=== PATIENT | male | born 1935 | race Caucasian/White ===

== ENCOUNTER 2017-01-05 16:22 | Inpatient (IN) | payer MEDICARE, OTHER ==
--- NOTE | ~2017-01-05 | EGD ---
EGD REPORT [facility] [address] [address] NAME: BLESSING RODRIGUEZ : 31 STATUS : ADM IN PAT#: [id number] AGE: 81 ADM/REG DATE : 01/05/17 MR#: [id number] REPORT SERV DATE: 01/07/17 DICTATED BY: ANTHONY ADAMS DATE: 01/07/17 REPORT STATUS : Draft TRANSCRIBED BY: [employer] DATE: 01/07/17 [facility]oscopy Center Patient Name: Blessing Rodriguez Date of : 1935 Attending MD: ANTHONY ADAMS MD Procedure Date No Time: 01/07/2017 Procedure: ERCP Indications: Tumor of the lower third of the main bile duct Referring MD: LIDIA BRYSON Medicines: Sedation Required Anesthesia Staff Assistance Complications: No immediate complications. Estimated blood loss: Minimal. Procedure: Pre-Anesthesia Assessment: - ASA Grade Assessment: IV - A patient with severe systemic disease that is a constant threat to life. After obtaining informed consent, the scope was passed under direct vision. Throughout the procedure, the patient's blood pressure, pulse, and oxygen saturations were monitored continuously. The TJF Q180V [id number] was introduced through the mouth, and advanced to the duodenum and used to locate the major papilla. The ERCP was accomplished without difficulty. The patient tolerated the procedure well. Findings: The major papilla was normal. The ventral pancreatic duct was deeply cannulated with the short-nosed traction sphincterotome. Contrast was injected. I personally interpreted the pancreatic duct images. There was brisk flow of contrast through the ducts. Image quality was excellent. Contrast extended to the pancreatic duct. The entire pancreatic duct was normal. A straight Roadrunner wire was passed into the biliary tree. A 3 mm biliary sphincterotomy was made with a braided stonetome over a wire using ERBE electrocautery. There was no post-sphincterotomy bleeding. The middle third of the main bile duct contained a single localized stenosis. The left and right hepatic ducts and all intrahepatic branches were diffusely dilated, with an obstruction. Cells for cytology were obtained by brushing. One 7 Fr by 7 cm plastic stent with a single external flap and a single internal flap was placed into the common bile duct. Bile flowed through the stent. The stent was in good position. Impression: - The major papilla appeared normal. - The pancreatogram was normal. - A localized biliary stricture was found. The stricture was malignant appearing. This stricture was treated with biliary sphincterotomy. EGD REPORT [address] [place]. [address] NAME: BLESSING RODRIGUEZ : [birth year] STATUS : ADM IN [facility]#: [id number] AGE: 81 ADM/REG DATE : 01/05/17 MR#: [id number] REPORT SERV DATE: 01/07/17 DICTATED BY: ANTHONY ADAMS DATE: 01/07/17 REPORT STATUS : Draft TRANSCRIBED BY: [employer] DATE: 01/07/17 - The left and right hepatic ducts and all intrahepatic branches were dilated, with an obstruction. Recommendation: - [facility]. - Clear liquid diet today. - Await cytology results. - Continue present medications. Procedure Code(s): --- Professional --- 89072, Esophagogastroduodenoscopy, flexible, transoral; diagnostic, including collection of specimen(s) by brushing or washing, when performed (separate procedure) Diagnosis Code(s): --- Professional --- K83.1, Obstruction of bile duct D49.0, Neoplasm of unspecified behavior of digestive system CPT copyright 2013 [employer]. All rights reserved. The codes documented in this report are preliminary and upon tinware lithograph press operator review may be revised to meet current compliance requirements. ANTHONY ADAMS MD 01/07/2017 9:03 AM This report has been signed electronically. Number of Addenda: 0 Note Initiated On: 01/07/2017 6:48 AM Scope Withdrawal Time 0 hours 0 minutes 0 seconds [id number] [place] [id number]
--- NOTE | ~2017-01-05 | DS ---
Discharge Summary [facility] [address] [facility] [place]. [address] NAME: BLESSING RODRIGUEZ : 31 STATUS : ADM IN [facility]#: [id number] AGE: 81 ADM/REG DATE : 01/05/17 MR#: [id number] REPORT SERV DATE: 01/12/17 DICTATED BY: DANILO HEAD DATE: 01/12/17 REPORT STATUS : Draft TRANSCRIBED BY: MODL DATE: 01/12/17 ADMISSION DATE: 01/05/2017 DISCHARGE DATE: 01/12/2017 CHIEF COMPLAINT ON ADMISSION: Turning yellow. DISCHARGE DIAGNOSES: 1. Obstructive jaundice. 2. Small bowel adenocarcinoma. 3. 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 4. Anemia chronic. 5. Severe malnutrition. 6. Previous history of lung cancer in 2009 and 2010. HISTORY OF PRESENT ILLNESS: Please see full H and P by Kerline Brush for details regarding initial presentation. HOSPITAL COURSE: 1. Obstructive jaundice due to malignant tumor of the lower third of the main bile duct. The patient was seen by GI, initially had a plastic stent placed which was replaced yesterday January 11 with a metal stent. Metal stent will last longer and the patient so will not have to come back in. The patient will follow up given his either recurrence of small bowel adenocarcinoma or an additional primary biliary cancer. He will follow up with Dr. [place] and consider either medical treatment versus hospice. At this point, no surgical option will be available to him given his severe malnutrition. Dr. Montana will see the patient early next week. 2. Small bowel adenocarcinoma. Again the patient will follow up with Dr. [place]. 3. Severe malnutrition. The patient should be encouraged to drink his Ensure. He was eating well prior to discharge. 4. Anemia, hemoglobin is 8.4 at discharge. 5. CKD with metabolic acidosis, chronic. The patient will be discharged on his previous home medications. 6. Leukocytosis, this has been stable, it is 14 at discharge. There is no evidence of an active ongoing infection. No fever. Again he can follow up as an outpatient. PERTINENT LABORATORY DATA: Prior to discharge, white blood cell count 14, hemoglobin 8.4, and platelet count of 346. BMP, serum sodium 137, potassium 4.4, chloride 105, CO2 of 22, creatinine 1.16, BUN 42, albumin 1.5, total bilirubin down to 5.5, alkaline phosphatase 445. CA19-9 was 995. Bilirubin was 19.1 on admission. DISPOSITION: Home with home health and PT. DISCHARGE MEDICATIONS: Same as admission. FOLLOWUP: Will be with Dr. Montana. Discharge Summary [address] [place]. [address] NAME: BLESSING RODRIGUEZ : 31 STATUS : ADM IN PAT#: [id number] AGE: 81 ADM/REG DATE : 01/05/17 MR#: [id number] REPORT SERV DATE: 01/12/17 DICTATED BY: DANILO HEAD DATE: 01/12/17 REPORT STATUS : Draft TRANSCRIBED BY: JAMILA DATE: 01/12/17 TIME SPENT ON DISCHARGE: Greater than 30 minutes. DNK/MODL Danilo Head MD / [id number] CC: MD Jonathon Patel M.D.
--- NOTE | ~2017-01-05 | CN ---
Consultation Report [place] [id number] [facility] [place]. [address] NAME: BLESSING RODRIGUEZ : [birth year] STATUS : ADM IN PAT#: [id number] AGE: 81 ADM/REG DATE : 01/05/17 MR#: [id number] REPORT SERV DATE: 01/06/17 DICTATED BY: SOREN NAIK DATE: 01/06/17 REPORT STATUS : Draft TRANSCRIBED BY: MODL DATE: 01/06/17 INPATIENT CONSULT NOTE DATE OF CONSULTATION: 01/06/2017 REASON FOR CONSULTATION: Obstructive jaundice. HISTORY OF PRESENT ILLNESS: Mr. Rodriguez is a very pleasant 81-year-old male with a past medical history most significant for prior lung cancer and recurrent small bowel cancer with prior small bowel obstructions who presented to the emergency department with complaints of painless jaundice. The patient states that recently he has noticed yellowing of his skin and sclerae and he has documented no problems with his appetite. No nausea or vomiting. No abdominal pain. No change in his bowel habits. The patient has noticed darkening of his urine. The patient underwent outpatient CT scanning of his abdomen which showed marked dilation of his intrahepatic biliary tree and his common hepatic duct up to the level of the duodenal ampulla where there appeared to be a 1.7 cm lesion either at the level of the papilla or just above it that was causing obstruction. Question if this is lymphadenopathy per Oncology notes. GI was consulted for ERCP and further management. REVIEW OF SYSTEMS: All systems reviewed and were negative aside from what was mentioned in the history of present illness. PAST MEDICAL HISTORY: Includes 1. Hypertension. 2. History of C. difficile colitis. 3. History of recurrent small bowel obstruction. 4. Chronic kidney disease, stage III. 5. Glaucoma. 6. Small bowel adenocarcinoma diagnosed in 2016. 7. History of lung cancer. 8. Remote history of skin cancer. 9. History of nephrolithiasis. 10.History of colon polyps. 11.History of GERD. PAST SURGICAL HISTORY: 1. Status post cholecystectomy. 2. Status post small bowel adenocarcinoma resection. FAMILY HISTORY: The patient has no family history of GI-related malignancies that he is aware of. Consultation Report [place] [id number] [facility] [place]. [address] NAME: BLESSING RODRIGUEZ : 33 STATUS : ADM IN PAT#: [id number] AGE: 81 ADM/REG DATE : 01/05/17 MR#: [id number] REPORT SERV DATE: 01/06/17 DICTATED BY: SOREN NAIK DATE: 01/06/17 REPORT STATUS : Draft TRANSCRIBED BY: MODJaylyn DATE: 01/06/17 SOCIAL HISTORY: The patient does not use alcohol or illicit substances and quit smoking approximately 50 years ago. ALLERGIES: THE PATIENT HAS NO KNOWN DRUG ALLERGIES. OUTPATIENT MEDICATIONS INCLUDE: 1. Cholestyramine. 2. Colace. 3. Lasix. 4. Levsin. 5. Megace. 6. Multivitamin. 7. Prilosec. 8. Potassium. 9. Sodium bicarbonate. 10.Flomax. 11.Hytrin. PHYSICAL EXAMINATION: VITAL SIGNS: Most recent vital signs include a temperature of 98.1, pulse of 80, blood pressure is 130/74, and saturating 95% on room air. GENERAL INSPECTION: Reveals an elderly male, lying in bed, in no apparent distress. HEENT: Head is normocephalic, atraumatic with normal inspection of the oral mucosa with moist mucous membranes. Sclerae positive for icterus. Pupils are equal and round. NECK: Supple without lymphadenopathy. HEART: Rate is regular with normal S1, S2. LUNGS: Sounds clear to auscultation bilaterally without wheezes, rales, or rhonchi. ABDOMEN: Soft, nontender, and nondistended with normoactive bowel sounds. EXTREMITIES: The patient has no cyanosis, clubbing, or edema. SKIN: The patient is unquestionably jaundiced but no other rashes were noted. NEUROLOGIC: The patient has no gross motor deficits. He is alert and oriented. Mood and affect are appropriate. Judgment appears to be intact. LABORATORY DATA: Most recent laboratory results include a CBC that demonstrated white count of 11.1, hemoglobin of 7.9, and a platelet count of 394,000. INR was elevated at 3.1. Comprehensive metabolic panel was relatively unremarkable aside from elevated BUN and creatinine of 31 and 1.8. Albumin is markedly low at 1.5, total bilirubin 15.9, alkaline phosphatase 1136, ALT of 116, and AST of 133. DIAGNOSTIC STUDIES: CT of the abdomen and pelvis was reviewed personally by myself which showed marked dilation of the intrahepatic biliary tree and common bile duct down to the level of the ampulla with obstruction by approximately a 1.7 cm mass. No abnormalities or obstruction of the pancreas. Consultation Report [facility] [address] [place]. [address] NAME: BLESSING RODRIGUEZ : 33 STATUS : ADM IN PAT#: [id number] AGE: 81 ADM/REG DATE : 01/05/17 MR#: [id number] REPORT SERV DATE: 01/06/17 DICTATED BY: SOREN NAIK DATE: 01/06/17 REPORT STATUS : Draft TRANSCRIBED BY: MODL DATE: 01/06/17 ASSESSMENT AND PLAN: Mr. Rodriguez is a very pleasant 81-year-old male with past medical history significant for small bowel adenocarcinoma as well as several other cancers who presents with painless jaundice and was found to have an obstructing mass at the level of the ampulla. We would perform ERCP for further evaluation and stent placement. If no mass is seen during that examination, we would pursue EUS with FNA for cytology. The patient has a markedly lowered albumin level, and his INR is considerably elevated concerning he is not on any type of anticoagulation suggesting either liver dysfunction or severe malnutrition. We would recommend continued diet as tolerated and also consideration of supplemental nutrition, possibly obtaining a Nutrition consult to see what would be most appropriate from their perspective. PLAN: 1. We will require that the patient's INR come down to below 1.5 prior to any endoscopy. We would achieve this with a combination of subcutaneous vitamin K as the patient has a history of celiac disease and biliary obstruction thereby likely limiting his absorption of fat-soluble vitamins including vitamin K. We would also assist this with FFP administration. 2. We would make the patient n.p.o. after midnight in anticipation of possible ERCP tomorrow. Thank you very much for this interesting consult. We will continue to follow along with you. Please call with any questions or concerns you might have. C/GIRMAL Soren Naik MD / [id number] CC: Justin Bailey M.D.
--- NOTE | ~2017-01-05 | HP ---
History And Physical [place] [address] [place]. [address] NAME: BLESSING RODRIGUEZ : 33 STATUS : ADM IN PAT#: [id number] AGE: 81 ADM/REG DATE : 01/05/17 MR#: [id number] REPORT SERV DATE: 01/06/17 DICTATED BY: DATE: REPORT STATUS : Draft TRANSCRIBED BY: MODL DATE: 01/05/17 DATE OF ADMISSION: 01/05/2017 CHIEF COMPLAINT: The patient is admitted from Dr. Montana's office with chief complaint of "yellowing ". HISTORY OF PRESENT ILLNESS: Mr. Rodriguez is a very pleasant 81-year-old white male, followed by [facility] for history of small bowel adenocarcinoma, which was resected in 04/2016. He did not undergo any chemotherapy afterward. He has been doing relatively well with the exception of a few hospitalizations for recurrent partial small-bowel obstructions through the fall of 2015. Dr. Montana reports that recently, the patient's total bilirubin has been becoming more elevated, as high as 3 last week with some up-trend in his liver enzymes as well, prompting a CT of the abdomen and pelvis to be performed on 12/29/2016 demonstrating marked dilation of the biliary tree with a soft tissue mass suspect at the duodenal papilla obstructing the common bile duct, but not the pancreatic duct. The patient was seen in Dr. Montana's office today with progressive jaundice and is referred to the Hospitalist Service for consideration of a palliative common bile duct stent and for further management of jaundice and weakness. The patient himself reports feeling well. He denies any abdominal pain, nausea, vomiting, or recent weight loss. He states that his appetite has been good, and his functional status has been good as well. 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 "I have been doing really well except for the yellowing." REVIEW OF SYSTEMS: Full 14-point review of systems is negative except as dictated in the history of present illness. PAST MEDICAL HISTORY: Includes: 1. Hypertension. 2. History of C. diff colitis. 3. History of recurrent small-bowel obstructions. 4. Chronic kidney disease, stage III. 5. Glaucoma. 6. Small-bowel adenocarcinoma, diagnosed in 2015. 7. History of lung cancer treated in 2009 and 2010. 8. Remote history of skin cancer. 9. History of nephrolithiasis. 10.History of colon polyps. 11.Gastroesophageal reflux disease. PAST SURGICAL HISTORY: Includes cholecystectomy, sinus surgery, small bowel tumor resection in April 2016. History And Physical [address] [address] NAME: BLESSING RODRIGUEZ : 33 STATUS : ADM IN PAT#: [id number] AGE: 81 ADM/REG DATE : 01/05/17 MR#: [id number] REPORT SERV DATE: 01/06/17 DICTATED BY: DATE: REPORT STATUS : Draft TRANSCRIBED BY: MODL DATE: 01/05/17 ALLERGIES: NO KNOWN DRUG ALLERGIES. MEDICATIONS: Home medication list includes: 1. Cholestyramine 4 g p.o. q.6 hours. 2. Colace 100 mg p.o. at bedtime. 3. Lasix 20 mg p.o. daily. 4. Levsin 0.125 mg p.o. every six hours as needed for abdominal pain. 5. Megace 10 mL p.o. twice a day. 6. Multivitamin one tablet p.o. daily. 7. Prilosec 40 mg p.o. daily. 8. Potassium 20 mEq p.o. daily. 9. Sodium bicarbonate 1300 mg p.o. twice a day. 10.Flomax 0.4 mg p.o. daily. 11.Hytrin 2 mg p.o. at bedtime. SOCIAL HISTORY: The patient is active, resides independently and a self-sufficient of all activities of daily living. He quit smoking 45 years ago. Does not use any alcohol or illicit substances. FAMILY HISTORY: Significant for COPD and emphysema as well as lung cancer. The patient has no family history of GI related malignancies. PHYSICAL EXAMINATION: VITAL SIGNS: Temperature 97.7, pulse 110, respirations 18, oxygen saturations 98% on room air, and blood pressure is 139/84. GENERAL: This is a well-developed, well-nourished white male, looking younger than his stated age, and in no apparent distress. Alert and oriented in three dimensions. Pleasant. HEENT: Normocephalic, atraumatic. Pupils are equally round and reactive to light. Positive scleral icterus. No conjunctival pallor. No sinus tenderness to palpation or nasal drainage. Oropharynx reveals moist mucosa with no posterior pharyngeal erythema or exudate. NECK: Supple with no jugular venous distention. No lymphadenopathy. No bruits. CARDIOVASCULAR: Regular rate and rhythm with occasional ectopy. No murmurs, rubs or gallops. LUNGS: Clear to auscultation bilaterally. No wheezes, crackles, or rhonchi. ABDOMEN: Soft, nontender, and nondistended with normoactive bowel sounds in four quadrants. No hepatosplenomegaly. EXTREMITIES: No cyanosis, clubbing, or edema. SKIN: Visibly jaundiced with normal skin turgor. No rash or skin breakdown. NEUROLOGIC: Cranial nerves 2 through 12 were tested and are intact. No asterixis. Strength 5/5 in bilateral upper and lower extremities. Deep tendon reflexes 2+ bilateral brachioradialis and patellar tendons. LABORATORY DATA: White blood cell count 12.3, hemoglobin 9.2, hematocrit 30.1, platelets 398. Comprehensive metabolic panel and INR are pending. IMAGING: CT abdomen and pelvis report as above. History And Physical [address] [address] NAME: BLESSING RODRIGUEZ : 33 STATUS : ADM IN [facility]#: [id number] AGE: 81 ADM/REG DATE : 01/05/17 MR#: [id number] REPORT SERV DATE: 01/06/17 DICTATED BY: DATE: REPORT STATUS : Draft TRANSCRIBED BY: JAMILA DATE: 01/05/17 IMPRESSION: 1. Obstructive jaundice due to soft tissue mass suspected at the duodenal papilla, obstructing the common bile duct, but not the pancreatic duct. 2. Recurrent adenocarcinoma of the small bowel. 3. History of partial small bowel obstructions. 4. History of Clostridium difficile. 5. Hypertension. 6. Benign prostatic hypertrophy. 7. Chronic kidney disease, stage III. 8. Glaucoma. PLAN: 1. The patient is being admitted to the Hospitalist Service, attending Dr. Barney Mercado. 2. Remainder of admission labs are pending, and records have been requested from Oncology for comparison. 3. N.p.o. after midnight for GI evaluation for palliative common bile duct stent or other management of obstructive jaundice. Dr. Thomas will be consulted and is aware of the pending consultation request. 4. Home medication list will be reviewed and reconciled as appropriate. JOSE/JAMILA Barney Mercado M.D. / [id number] CC: Justin Bailey M.D.
--- NOTE | ~2017-01-05 | EGD ---
EGD REPORT [facility] [address] [address] NAME: BLESSING RODRIUGEZ : 33 STATUS : ADM IN PAT#: [id number] AGE: 81 ADM/REG DATE : 01/05/17 MR#: [id number] REPORT SERV DATE: 01/11/17 DICTATED BY: SOREN NAIK DATE: 01/11/17 REPORT STATUS : Draft TRANSCRIBED BY: [facility] DATE: 01/11/17 Endoscopy Center Patient Name: Blessing Rodriguez Date of : 1935 Attending MD: SOREN NAIK MD Procedure Date No Time: 01/11/2017 Procedure: ERCP Indications: Malignant tumor of the lower third of the main bile duct; need for metal stent placement Referring MD: LIDIA BRYSON Medicines: General Anesthesia Complications: No immediate complications. Estimated blood loss: None Procedure: Pre-Anesthesia Assessment: - ASA Grade Assessment: III - A patient with severe systemic disease. After obtaining informed consent, the scope was passed under direct vision. Throughout the procedure, the patient's blood pressure, pulse, and oxygen saturations were monitored continuously. The TJF Q180V [id number] was introduced through the mouth, and advanced to the duodenum and used to inject contrast into the bile duct. The ERCP was accomplished without difficulty. The patient tolerated the procedure well. Findings: A masking machine feeder film of the abdomen was obtained. One stent ending in the lower third of the main bile duct was seen. The esophagus was successfully intubated under direct vision without detailed examination of the pharynx, larynx, and associated structures, and upper GI tract. One stent originating in the biliary tree was emerging from the major papilla. The stent was visibly patent. 0.035 inch x 260 cm straight Hydra Jagwire was passed into the biliary tree. The biliary tree contained one plastic stent. The stent was removed using a snare. A 10 mm by 6 cm bare metal stent with no external flaps and no internal flaps was placed into the biliary tree. Bile flowed through the stent. The stent was in good position. The endoscope was withdrawn from the patient. Impression: - Successful exchange of a plastic biliary stent for an uncovered 10 x 60 mm SEMS Recommendation: - [facility]. - Return to GI clinic PRN. Procedure Code(s): --- Professional --- 58556, Endoscopic retrograde cholangiopancreatography EGD REPORT [address] [address] NAME: BLESSING RODRIGUEZ : 31 STATUS : ADM IN [facility]#: [id number] AGE: 81 ADM/REG DATE : 01/05/17 MR#: [id number] REPORT SERV DATE: 01/11/17 DICTATED BY: SOREN NAIK DATE: 01/11/17 REPORT STATUS : Draft TRANSCRIBED BY: [employer] DATE: 01/11/17 (ERCP); with removal and exchange of stent(s), biliary or pancreatic duct, including pre- and post-dilation and guide wire passage, when performed, including sphincterotomy, when performed, each stent exchanged Diagnosis Code(s): --- Professional --- Z96.89, Presence of other specified functional implants Z46.59, Encounter for fitting and adjustment of other gastrointestinal appliance and device C24.0, Malignant neoplasm of extrahepatic bile duct CPT copyright 2013 [employer]. All rights reserved. The codes documented in this report are preliminary and upon computer language coder review may be revised to meet current compliance requirements. Soren Naik MD SOREN NAIK MD 01/11/2017 10:55 AM This report has been signed electronically. Number of Addenda: 0 Note Initiated On: 01/11/2017 8:10 AM Scope Withdrawal Time 0 hours 0 minutes 0 seconds [address] [place] [address]
[~2017-01-05 16:22] MED LIST: ACET500CAP PO; ALUMINUM HYDROXIDE PO; AMLODIPINE BESYLATE PO; ASAB PO; AUGMENTIN; BLOOD PRESSURE MED; CENTRUM PO; CENTRUM TAB1 TAB PO; COUGH MED PO; DEX4 PO; EYE DROPS; FERROUS SULF325 M1 PO; FLAG500TAB PO; FLORASTOR250 MG PO; FLUCON1 PO; HYT2 PO; HYT5 PO; HYZAAR 100/25 T1 TAB PO; IMOD PO; IRON; IRON325 MG PO; KDUR20 PO; KLOR-CON M2020 MEQ PO; L20 PO; L40 PO; LEVAQUIN750 MG PO; LOM PO; LORTAB 5 PO; M-END WC OR; MAALOX PO; MEGACE PO; MEGACEUDL PO; MULTIPLE VIT PO; MULTIVIT/MIN PO; NORCO1 TA1 PO; NORV5 PO; POTASSIUM PO; PR25 PO; PRILOSEC40 MG PO; PROBIOTIC PO; QUESTRAN4 GM; QUESTRAN4 GM PO; SODBICAR10 PO; SUPER B COMP PO; T PO; TERAZOSIN PO; ULTRAM50 PO; VANC125UDL PO; VICODINTAB PO; VITAMIN PO; XALAT OP; XALAT OPH; ZOFRAN4 PO; [UNRECOGNIZED DRUG - CODE] PO; [UNRECOGNIZED DRUG - MIXTURE] PO; [UNRECOGNIZED DRUG - OTHER] PO; [UNRECOGNIZED DRUG - OTHER] PO/LIQ; [UNRECOGNIZED DRUG - REMARK] PO
[2017-01-05] MEDS ORDERED: MULTIVITAMI1 PO (17:36)
[2017-01-05] MEDS ORDERED: DSS PO (17:36)
[2017-01-05] MEDS ORDERED: FLOMAX4 PO (17:36)
[2017-01-05] MEDS ORDERED: L20 PO (17:36)
[2017-01-05] MEDS ORDERED: PRILOSEC40 MG PO (17:37)
[2017-01-05] MEDS ORDERED: MEGACEUDL PO (17:37)
[2017-01-05] MEDS ORDERED: SODBICAR10 PO (17:37)
[2017-01-05] MEDS ORDERED: LEVSINTAB PO (17:38)
[2017-01-05] MEDS ORDERED: KLOR-CON M2020 MEQ PO (17:38)
[2017-01-05] MEDS ORDERED: HYT2 PO (17:38)
[2017-01-05] MEDS ORDERED: PREVALITE4 G1 PO (17:38)
[2017-01-05 17:39] LABS: HEMATOCRIT 30.1 % (40.0-51.0); HEMOGLOBIN 9.2 g/dL (13.6-17.8); MANUAL DIFF YES %; MEAN CORPUS HGB CONC 30.6 g/dL (32.0-36.0); MEAN CORPUSCULAR HEMOGLOB 29.8 pg (26.0-34.0); MEAN CORPUSCULAR VOLUME 97.4 fL (80-100); PLATELET COUNT 398 10/3/uL (150-400); RBC DISTRIBUTION WIDTH 19.3 % (12.0-16.0); RED CELL COUNT 3.09 10/6/uL (4.7-6.1); WHITE BLOOD CELLS 12.3 10/3/uL (4.5-10.5)
[2017-01-05 17:49] LABS: INTERNATIONAL NORMAL RATI 3.3 UNITS (-)
[2017-01-05 17:51] LABS: PROTIME (NOT ORD) 33.1 SEC (12.0-14.5)
[2017-01-05 18:05] LABS: BUN (BLOOD UREA NITROGEN) 35 MG/DL (6-23); CALCIUM, SERUM 7.9 MG/DL (8.5-10.4); CHLORIDE, SERUM 109 MMOL/L (96-112); CO2 (CARBON DIOXIDE) 19 MMOL/L (24-34); CREATININE 1.94 MG/DL (0.70-1.30); GFR AFRICAN AMERICAN 36 ML/MIN (>=60); GFR NON AFRICAN AMERICAN 31 ML/MIN (>=60); SGPT(ALT) 138 U/L (5-65); SODIUM, SERUM 138 MMOL/L (135-148)
[2017-01-05 18:06] LABS: A/G RATIO 0.6 (0.7-1.9); ALBUMIN 1.9 G/DL (3.5-5.0); ALKALINE PHOSPHATASE 1411 U/L (45-117); GLOBULIN 3.1 G/DL (2.5-4.1); GLUCOSE, SERUM 83 MG/DL (60-99); POTASSIUM, SERUM 4.1 MMOL/L (3.5-5.3); TOTAL BILIRUBIN 19.1 MG/DL (0-1.2)
[2017-01-05 18:07] LABS: SGOT(AST) 172 U/L (5-40)
[2017-01-05 18:23] LABS: ANISOCYTOSIS 1+ (5-10/OIF) (0-5/OIF); BAND NEUTROPHILS 2 %; EOSINOPHILS 1 %; EOSINOPHILS ABSOLUTE (CALC) 0.12 10/3/uL (0.0-0.53); IMMATURE GRANS ABSOLUTE (CALC) 0.98 10/3/uL (0.0-0.11); LYMPHOCYTES 5 %; LYMPHOCYTES ABSOLUTE (CALC) 0.62 10/3/uL (0.67-4.30); METAMYELOCYTES 7 %; MONOCYTES 6 %; MONOCYTES ABSOLUTE (CALC) 0.74 10/3/uL (0.21-1.20); MYELOCYTES 1 %; NEUTROPHILS ABSOLUTE (CALC) 9.84 10/3/uL (2.02-8.40); SEGMENTED NEUTROPHIL (0) 78 %; TARGET CELLS FEW (3-10/OIF) (0-1/OIF); TOTAL NUCLEATED CELLS 100
[2017-01-05 18:24] LABS: HYPOCHROMIA 1+ (3-10/OIF) (0-2/OIF); PLATELET ESTIMATE ADQ (ADEQUATE)
[2017-01-05 18:25] LABS: POLYCHROMASIA 1+ (2-5/OIF) (0-1/OIF)
[2017-01-06 04:13] LABS: HEMATOCRIT 26.5 % (40.0-51.0); HEMOGLOBIN 7.9 g/dL (13.6-17.8); MANUAL DIFF YES %; MEAN CORPUS HGB CONC 29.8 g/dL (32.0-36.0); MEAN CORPUSCULAR HEMOGLOB 28.5 pg (26.0-34.0); MEAN CORPUSCULAR VOLUME 95.7 fL (80-100); MEAN PLATELET VOLUME 10.3 fL (9.2-13.0); PLATELET COUNT 394 10/3/uL (150-400); RBC DISTRIBUTION WIDTH 18.9 % (12.0-16.0); RED CELL COUNT 2.77 10/6/uL (4.7-6.1); WHITE BLOOD CELLS 11.1 10/3/uL (4.5-10.5)
[2017-01-06 04:14] LABS: INTERNATIONAL NORMAL RATI 3.1 UNITS (-); PROTIME (NOT ORD) 31.8 SEC (12.0-14.5)
[2017-01-06 04:38] LABS: CALCIUM, SERUM 7.6 MG/DL (8.5-10.4); CHLORIDE, SERUM 110 MMOL/L (96-112); CO2 (CARBON DIOXIDE) 19 MMOL/L (24-34); GFR AFRICAN AMERICAN 39 ML/MIN (>=60); GFR NON AFRICAN AMERICAN 34 ML/MIN (>=60); GLUCOSE, SERUM 99 MG/DL (60-99); POTASSIUM, SERUM 4.2 MMOL/L (3.5-5.3); SGOT(AST) 133 U/L (5-40); SGPT(ALT) 116 U/L (5-65); SODIUM, SERUM 139 MMOL/L (135-148); TOTAL PROTEIN 4.3 G/DL (6.0-8.5)
[2017-01-06 04:44] LABS: A/G RATIO 0.5 (0.7-1.9); ALBUMIN 1.5 G/DL (3.5-5.0); ALKALINE PHOSPHATASE 1136 U/L (45-117); BUN (BLOOD UREA NITROGEN) 31 MG/DL (6-23); GLOBULIN 2.8 G/DL (2.5-4.1); TOTAL BILIRUBIN 15.9 MG/DL (0-1.2)
[2017-01-06 05:06] LABS: BAND NEUTROPHILS 1 %; IMMATURE GRANS ABSOLUTE (CALC) 0.44 10/3/uL (0.0-0.11); LYMPHOCYTES 6 %; LYMPHOCYTES ABSOLUTE (CALC) 0.67 10/3/uL (0.67-4.30); METAMYELOCYTES 3 %; MONOCYTES 4 %; MONOCYTES ABSOLUTE (CALC) 0.44 10/3/uL (0.21-1.20); MYELOCYTES 1 %; NEUTROPHILS ABSOLUTE (CALC) 9.55 10/3/uL (2.02-8.40); SEGMENTED NEUTROPHIL (0) 85 %; TARGET CELLS FEW (3-10/OIF) (0-1/OIF); TOTAL NUCLEATED CELLS 100
[2017-01-06 05:07] LABS: ANISOCYTOSIS 1+ (5-10/OIF) (0-5/OIF); HYPOCHROMIA 1+ (3-10/OIF) (0-2/OIF); POLYCHROMASIA 1+ (2-5/OIF) (0-1/OIF)
[2017-01-06 11:14] LABS: PROCALCITONIN 0.91 ng/mL (<0.5)
[2017-01-06 12:31] LABS: ASCORBIC ACID (UR NOT ORDER) NEG (NEG); BILIRUBIN, URINE NEGATIVE (NEG); KETONE, URINE NEGATIVE (NEG); LEUKOCYTE ESTERASE(NOT OR NEG (NEG); WBC (NOT ORDERED) (RFLEX) 1 (0-5)
[2017-01-07 05:20] LABS: INTERNATIONAL NORMAL RATI 1.3 UNITS (-); PARTIAL THROMBO TIME 32.6 SEC (22.5-37.2); PROTIME (NOT ORD) 16.5 SEC (12.0-14.5)
[2017-01-07 05:33] LABS: HEMATOCRIT 28.3 % (40.0-51.0); HEMOGLOBIN 8.3 g/dL (13.6-17.8); MEAN CORPUS HGB CONC 29.3 g/dL (32.0-36.0); MEAN CORPUSCULAR HEMOGLOB 28.1 pg (26.0-34.0); MEAN CORPUSCULAR VOLUME 95.9 fL (80-100); MEAN PLATELET VOLUME 10.3 fL (9.2-13.0); PLATELET COUNT 412 10/3/uL (150-400); RBC DISTRIBUTION WIDTH 19.3 % (12.0-16.0); RED CELL COUNT 2.95 10/6/uL (4.7-6.1); WHITE BLOOD CELLS 12.7 10/3/uL (4.5-10.5)
[2017-01-07 05:34] LABS: MANUAL DIFF YES %
[2017-01-07 05:43] LABS: A/G RATIO 0.6 (0.7-1.9); ALBUMIN 1.6 G/DL (3.5-5.0); BUN (BLOOD UREA NITROGEN) 28 MG/DL (6-23); CALCIUM, SERUM 7.8 MG/DL (8.5-10.4); CHLORIDE, SERUM 109 MMOL/L (96-112); CO2 (CARBON DIOXIDE) 17 MMOL/L (24-34); CREATININE 1.59 MG/DL (0.70-1.30); GFR AFRICAN AMERICAN 46 ML/MIN (>=60); GFR NON AFRICAN AMERICAN 40 ML/MIN (>=60); GLOBULIN 2.9 G/DL (2.5-4.1); GLUCOSE, SERUM 80 MG/DL (60-99); POTASSIUM, SERUM 4.1 MMOL/L (3.5-5.3); SGOT(AST) 124 U/L (5-40); SGPT(ALT) 99 U/L (5-65); SODIUM, SERUM 138 MMOL/L (135-148); TOTAL PROTEIN 4.5 G/DL (6.0-8.5)
[2017-01-07 05:46] LABS: ALKALINE PHOSPHATASE 1122 U/L (45-117); TOTAL BILIRUBIN 18.4 MG/DL (0-1.2)
[2017-01-07 06:40] LABS: BAND NEUTROPHILS 4 %; IMMATURE GRANS ABSOLUTE (CALC) 0.76 10/3/uL (0.0-0.11); LYMPHOCYTES 11 %; METAMYELOCYTES 6 %; MONOCYTES 6 %; MONOCYTES ABSOLUTE (CALC) 0.76 10/3/uL (0.21-1.20); NEUTROPHILS ABSOLUTE (CALC) 9.78 10/3/uL (2.02-8.40); PLATELET ESTIMATE SLT INC (ADEQUATE); SEGMENTED NEUTROPHIL (0) 73 %; TOTAL NUCLEATED CELLS 100
[2017-01-07 06:41] LABS: ANISOCYTOSIS 1+ (5-10/OIF) (0-5/OIF); TARGET CELLS FEW (3-10/OIF) (0-1/OIF)
[2017-01-07 13:26] LABS: FREE T4 1.43 NG/DL (0.76-1.46); PREALBUMIN 6.5 MG/DL (17.0-43.0)
[2017-01-08 06:28] LABS: HEMATOCRIT 26.7 % (40.0-51.0); HEMOGLOBIN 8.1 g/dL (13.6-17.8); MEAN CORPUS HGB CONC 30.3 g/dL (32.0-36.0); MEAN CORPUSCULAR HEMOGLOB 29.8 pg (26.0-34.0); MEAN CORPUSCULAR VOLUME 98.2 fL (80-100); MEAN PLATELET VOLUME 10.5 fL (9.2-13.0); PLATELET COUNT 400 10/3/uL (150-400); RED CELL COUNT 2.72 10/6/uL (4.7-6.1); WHITE BLOOD CELLS 13.4 10/3/uL (4.5-10.5)
[2017-01-08 06:32] LABS: MANUAL DIFF YES %
[2017-01-08 07:02] LABS: ANISOCYTOSIS 1+ (5-10/OIF) (0-5/OIF); BAND NEUTROPHILS 4 %; IMMATURE GRANS ABSOLUTE (CALC) 0.27 10/3/uL (0.0-0.11); LYMPHOCYTES 9 %; LYMPHOCYTES ABSOLUTE (CALC) 1.21 10/3/uL (0.67-4.30); METAMYELOCYTES 2 %; MONOCYTES 3 %; NEUTROPHILS ABSOLUTE (CALC) 11.52 10/3/uL (2.02-8.40); PLATELET ESTIMATE ADQ (ADEQUATE); SEGMENTED NEUTROPHIL (0) 82 %; TOTAL NUCLEATED CELLS 100
[2017-01-08 07:03] LABS: HYPOCHROMIA 1+ (3-10/OIF) (0-2/OIF); TARGET CELLS FEW (3-10/OIF) (0-1/OIF)
[2017-01-08 07:26] LABS: ALBUMIN 1.4 G/DL (3.5-5.0); TOTAL PROTEIN 4.2 G/DL (6.0-8.5)
[2017-01-08 07:27] LABS: DIRECT BILIRUBIN 9.9 MG/DL (0.0-0.4); INDIRECT BILIRUBIN(NOT ORDER) 2.7 MG/DL (0.1-0.9); TOTAL BILIRUBIN 12.6 MG/DL (0-1.2)
[2017-01-08 11:39] LABS: PROCALCITONIN 0.69 ng/mL (<0.5)
[2017-01-09 05:37] LABS: INTERNATIONAL NORMAL RATI 1.3 UNITS (-); PROTIME (NOT ORD) 16.1 SEC (12.0-14.5)
[2017-01-09 05:39] LABS: HEMATOCRIT 24.2 % (40.0-51.0); HEMOGLOBIN 7.6 g/dL (13.6-17.8); MEAN CORPUS HGB CONC 31.4 g/dL (32.0-36.0); MEAN CORPUSCULAR HEMOGLOB 30.5 pg (26.0-34.0); MEAN CORPUSCULAR VOLUME 97.2 fL (80-100); MEAN PLATELET VOLUME 10.1 fL (9.2-13.0); PLATELET COUNT 355 10/3/uL (150-400); RBC DISTRIBUTION WIDTH 19.1 % (12.0-16.0); RED CELL COUNT 2.49 10/6/uL (4.7-6.1); WHITE BLOOD CELLS 14.2 10/3/uL (4.5-10.5)
[2017-01-09 05:46] LABS: MANUAL DIFF YES %
[2017-01-09 05:53] LABS: A/G RATIO 0.5 (0.7-1.9); ALBUMIN 1.4 G/DL (3.5-5.0); BUN (BLOOD UREA NITROGEN) 29 MG/DL (6-23); CALCIUM, SERUM 7.8 MG/DL (8.5-10.4); CHLORIDE, SERUM 106 MMOL/L (96-112); CO2 (CARBON DIOXIDE) 19 MMOL/L (24-34); CREATININE 1.46 MG/DL (0.70-1.30); GFR AFRICAN AMERICAN 51 ML/MIN (>=60); GFR NON AFRICAN AMERICAN 44 ML/MIN (>=60); GLOBULIN 2.9 G/DL (2.5-4.1); POTASSIUM, SERUM 4.4 MMOL/L (3.5-5.3); SGOT(AST) 40 U/L (5-40); SGPT(ALT) 56 U/L (5-65); SODIUM, SERUM 135 MMOL/L (135-148); TOTAL PROTEIN 4.3 G/DL (6.0-8.5)
[2017-01-09 05:59] LABS: ALKALINE PHOSPHATASE 703 U/L (45-117); DIRECT BILIRUBIN 7.3 MG/DL (0.0-0.4); GLUCOSE, SERUM 99 MG/DL (60-99); INDIRECT BILIRUBIN(NOT ORDER) 1.6 MG/DL (0.1-0.9); TOTAL BILIRUBIN 8.9 MG/DL (0-1.2)
[2017-01-09 07:27] LABS: ANISOCYTOSIS 1+ (5-10/OIF) (0-5/OIF); BAND NEUTROPHILS 6 %; IMMATURE GRANS ABSOLUTE (CALC) 0.57 10/3/uL (0.0-0.11); LYMPHOCYTES 6 %; LYMPHOCYTES ABSOLUTE (CALC) 0.85 10/3/uL (0.67-4.30); METAMYELOCYTES 4 %; MONOCYTES 9 %; MONOCYTES ABSOLUTE (CALC) 1.28 10/3/uL (0.21-1.20); PLATELET ESTIMATE ADQ (ADEQUATE); SEGMENTED NEUTROPHIL (0) 75 %; TOTAL NUCLEATED CELLS 100
[2017-01-09 07:28] LABS: STOMATOCYTES 1+ (3-10/OIF) (0-2/OIF); TARGET CELLS FEW (3-10/OIF) (0-1/OIF)
[2017-01-10 07:32] LABS: HEMATOCRIT 24.9 % (40.0-51.0); HEMOGLOBIN 7.4 g/dL (13.6-17.8); MEAN CORPUSCULAR HEMOGLOB 28.8 pg (26.0-34.0); MEAN CORPUSCULAR VOLUME 96.9 fL (80-100); MEAN PLATELET VOLUME 10.4 fL (9.2-13.0); PLATELET COUNT 363 10/3/uL (150-400); RED CELL COUNT 2.57 10/6/uL (4.7-6.1); WHITE BLOOD CELLS 16.9 10/3/uL (4.5-10.5)
[2017-01-10 07:33] LABS: MANUAL DIFF YES %; MEAN CORPUS HGB CONC 29.7 g/dL (32.0-36.0)
[2017-01-10 07:39] LABS: A/G RATIO 0.4 (0.7-1.9); ALBUMIN 1.3 G/DL (3.5-5.0); ALKALINE PHOSPHATASE 551 U/L (45-117); BUN (BLOOD UREA NITROGEN) 34 MG/DL (6-23); CALCIUM, SERUM 7.5 MG/DL (8.5-10.4); CHLORIDE, SERUM 108 MMOL/L (96-112); CO2 (CARBON DIOXIDE) 19 MMOL/L (24-34); CREATININE 1.15 MG/DL (0.70-1.30); DIRECT BILIRUBIN 5.6 MG/DL (0.0-0.4); GFR AFRICAN AMERICAN 68 ML/MIN (>=60); GFR NON AFRICAN AMERICAN 59 ML/MIN (>=60); GLOBULIN 3.1 G/DL (2.5-4.1); GLUCOSE, SERUM 87 MG/DL (60-99); INDIRECT BILIRUBIN(NOT ORDER) 1.6 MG/DL (0.1-0.9); POTASSIUM, SERUM 4.6 MMOL/L (3.5-5.3); SGOT(AST) 42 U/L (5-40); SGPT(ALT) 51 U/L (5-65); SODIUM, SERUM 136 MMOL/L (135-148); TOTAL BILIRUBIN 7.2 MG/DL (0-1.2); TOTAL PROTEIN 4.4 G/DL (6.0-8.5)
[2017-01-10 07:51] LABS: INTERNATIONAL NORMAL RATI 1.2 UNITS (-); PROTIME (NOT ORD) 15.4 SEC (12.0-14.5)
[2017-01-10 08:32] LABS: BAND NEUTROPHILS 5 %; IMMATURE GRANS ABSOLUTE (CALC) 1.69 10/3/uL (0.0-0.11); LYMPHOCYTES 17 %; LYMPHOCYTES ABSOLUTE (CALC) 2.87 10/3/uL (0.67-4.30); METAMYELOCYTES 8 %; MONOCYTES 5 %; MONOCYTES ABSOLUTE (CALC) 0.85 10/3/uL (0.21-1.20); MYELOCYTES 2 %; NEUTROPHILS ABSOLUTE (CALC) 11.49 10/3/uL (2.02-8.40); PLATELET ESTIMATE ADQ (ADEQUATE); SEGMENTED NEUTROPHIL (0) 63 %; TOTAL NUCLEATED CELLS 100
[2017-01-10 08:33] LABS: ANISOCYTOSIS 1+ (5-10/OIF) (0-5/OIF); POIKILOCYTOSIS 1+ (5-10/OIF) (0-5/OIF); POLYCHROMASIA 1+ (2-5/OIF) (0-1/OIF); TOXIC GRANULATION 1+
[2017-01-10 08:42] LABS: PROCALCITONIN 0.52 ng/mL (<0.5)
[2017-01-10 12:28] LABS: CA-19-9 995.1 U/ML (< 37.0)
[2017-01-11 06:18] LABS: MEAN CORPUSCULAR HEMOGLOB 30.7 pg (26.0-34.0); MEAN CORPUSCULAR VOLUME 96.9 fL (80-100); MEAN PLATELET VOLUME 10.9 fL (9.2-13.0); PLATELET COUNT 299 10/3/uL (150-400); RBC DISTRIBUTION WIDTH 20.2 % (12.0-16.0); RED CELL COUNT 2.93 10/6/uL (4.7-6.1); WHITE BLOOD CELLS 15.7 10/3/uL (4.5-10.5)
[2017-01-11 06:19] LABS: HEMATOCRIT 28.4 % (40.0-51.0); MANUAL DIFF YES %; MEAN CORPUS HGB CONC 31.7 g/dL (32.0-36.0)
[2017-01-11 06:27] LABS: A/G RATIO 0.4 (0.7-1.9); ALBUMIN 1.3 G/DL (3.5-5.0); CALCIUM, SERUM 7.7 MG/DL (8.5-10.4); CHLORIDE, SERUM 106 MMOL/L (96-112); CO2 (CARBON DIOXIDE) 20 MMOL/L (24-34); CREATININE 1.12 MG/DL (0.70-1.30); GFR AFRICAN AMERICAN 70 ML/MIN (>=60); GFR NON AFRICAN AMERICAN 60 ML/MIN (>=60); GLOBULIN 3.4 G/DL (2.5-4.1); GLUCOSE, SERUM 88 MG/DL (60-99); SGPT(ALT) 44 U/L (5-65); SODIUM, SERUM 136 MMOL/L (135-148); TOTAL PROTEIN 4.7 G/DL (6.0-8.5)
[2017-01-11 06:31] LABS: ALKALINE PHOSPHATASE 485 U/L (45-117); BUN (BLOOD UREA NITROGEN) 38 MG/DL (6-23); SGOT(AST) 50 U/L (5-40); TOTAL BILIRUBIN 5.9 MG/DL (0-1.2)
[2017-01-11 06:37] LABS: ANISOCYTOSIS 1+ (5-10/OIF) (0-5/OIF); BAND NEUTROPHILS 12 %; EOSINOPHILS 1 %; EOSINOPHILS ABSOLUTE (CALC) 0.16 10/3/uL (0.0-0.53); LYMPHOCYTES 9 %; LYMPHOCYTES ABSOLUTE (CALC) 1.41 10/3/uL (0.67-4.30); METAMYELOCYTES 5 %; MONOCYTES 2 %; MONOCYTES ABSOLUTE (CALC) 0.31 10/3/uL (0.21-1.20); MYELOCYTES 2 %; NEUTROPHILS ABSOLUTE (CALC) 12.72 10/3/uL (2.02-8.40); PLATELET ESTIMATE ADQ (ADEQUATE); SEGMENTED NEUTROPHIL (0) 69 %; TOTAL NUCLEATED CELLS 100
[2017-01-11 06:38] LABS: POLYCHROMASIA 1+ (2-5/OIF) (0-1/OIF)
[2017-01-11 14:24] LABS: TROPONIN I <0.02 NG/ML (<0.05)
[2017-01-11 14:25] LABS: CK-MB 0.9 NG/ML; CPK 22 U/L (0-200)
[2017-01-12 05:26] LABS: HEMATOCRIT 26.4 % (40.0-51.0); HEMOGLOBIN 8.4 g/dL (13.6-17.8); MEAN CORPUS HGB CONC 31.8 g/dL (32.0-36.0); MEAN CORPUSCULAR HEMOGLOB 29.7 pg (26.0-34.0); MEAN PLATELET VOLUME 10.7 fL (9.2-13.0); PLATELET COUNT 346 10/3/uL (150-400); RBC DISTRIBUTION WIDTH 19.4 % (12.0-16.0); RED CELL COUNT 2.83 10/6/uL (4.7-6.1)
[2017-01-12 05:34] LABS: A/G RATIO 0.5 (0.7-1.9); ALBUMIN 1.5 G/DL (3.5-5.0); CALCIUM, SERUM 7.9 MG/DL (8.5-10.4); CHLORIDE, SERUM 105 MMOL/L (96-112); CO2 (CARBON DIOXIDE) 22 MMOL/L (24-34); CREATININE 1.16 MG/DL (0.70-1.30); GFR AFRICAN AMERICAN 67 ML/MIN (>=60); GFR NON AFRICAN AMERICAN 58 ML/MIN (>=60); GLOBULIN 3.3 G/DL (2.5-4.1); GLUCOSE, SERUM 94 MG/DL (60-99); POTASSIUM, SERUM 4.4 MMOL/L (3.5-5.3); SGOT(AST) 44 U/L (5-40); SGPT(ALT) 45 U/L (5-65); SODIUM, SERUM 137 MMOL/L (135-148); TOTAL BILIRUBIN 5.5 MG/DL (0-1.2); TOTAL PROTEIN 4.8 G/DL (6.0-8.5)
[2017-01-12 05:35] LABS: ALKALINE PHOSPHATASE 445 U/L (45-117); BUN (BLOOD UREA NITROGEN) 42 MG/DL (6-23)
[2017-01-12 05:36] LABS: MANUAL DIFF YES %; MEAN CORPUSCULAR VOLUME 93.3 fL (80-100)
[2017-01-12 07:14] LABS: ANISOCYTOSIS 1+ (5-10/OIF) (0-5/OIF); BAND NEUTROPHILS 6 %; IMMATURE GRANS ABSOLUTE (CALC) 0.14 10/3/uL (0.0-0.11); LYMPHOCYTES 21 %; LYMPHOCYTES ABSOLUTE (CALC) 2.94 10/3/uL (0.67-4.30); METAMYELOCYTES 1 %; MONOCYTES 3 %; MONOCYTES ABSOLUTE (CALC) 0.42 10/3/uL (0.21-1.20); PLATELET ESTIMATE ADQ (ADEQUATE); SEGMENTED NEUTROPHIL (0) 69 %; TARGET CELLS OCC (1-2/OIF) (0-1/OIF); TOTAL NUCLEATED CELLS 100
== END 2017-01-12 12:28 | disposition home health service (06) | DRG 374 ==
LOC: 4EA 16:22
PROVIDERS: Hospitalist; Internal Medicine; Internal Medicine Gastroenterology; Nurse Practitioner Family
PROC: 30233L1 Transfusion of Nonautologous Fresh Plasma into Peripheral Vein, Percutaneous Approach (ICD-10-PCS; 2017-01-06)
PROC: BF131ZZ Fluoroscopy of Gallbladder and Bile Ducts using Low Osmolar Contrast (ICD-10-PCS; 2017-01-07)
PROC: 0F798DZ Dilation of Common Bile Duct with Intraluminal Device, Via Natural or Artificial Opening Endoscopic (ICD-10-PCS; principal; 2017-01-07 07:30)
PROC: 30233N1 Transfusion of Nonautologous Red Blood Cells into Peripheral Vein, Percutaneous Approach (ICD-10-PCS; 2017-01-10)
PROC: 0FPB8DZ Removal of Intraluminal Device from Hepatobiliary Duct, Via Natural or Artificial Opening Endoscopic (ICD-10-PCS; 2017-01-11)
PROC: 0F798DZ Dilation of Common Bile Duct with Intraluminal Device, Via Natural or Artificial Opening Endoscopic (ICD-10-PCS; 2017-01-11)
DX: C17.9 Malignant neoplasm of small intestine, unspecified (principal); K83.1 Obstruction of bile duct; E43 Unspecified severe protein-calorie malnutrition; E87.2 Acidosis; N18.3 Chronic kidney disease, stage 3 (moderate); I12.9 Hypertensive chronic kidney disease with stage 1 through stage 4 chronic kidney disease, or unspecified chronic kidney disease; N40.0 Benign prostatic hyperplasia without lower urinary tract symptoms; H40.9 Unspecified glaucoma; Z68.21 Body mass index [BMI] 21.0-21.9, adult
CPT/HCPCS: 36415; 74330; 80053; 80076; 81001; 82248; 82550; 82553; 83605; 84134; 84145; 84439; 84443; 84484; 85025; 85384; 85610; 85730; 86301; 86850; 86900; 86901; 86920; 87040; 88112; 93005; 93970; 97116-GP; 97161-GP; A9270-GY; C1769; C1876; C2625; G8978-CK-GP; G8979-CJ-GP; J1940; J2370; J2405; J2710; J3010; J3430; P9016; P9059; Q9967